=== PATIENT | male | born 1985 | race Caucasian/White ===

== ENCOUNTER 2024-02-09 23:20 | Emergency (ER) | payer BC, SELFPAY ==
[2024-02-09 23:20] VITALS: BMI 25.1
[2024-02-09 23:30] VITALS: BP 133/84
[2024-02-10 00:25] VITALS: BP 122/91
[2024-02-10 00:41] LABS: % Basophils 0.9 % (0-2); % Immature Granulocytes 0.9 % (0-0.5); % Lymphocytes 38.9 % (20.5-51.1); % Monocytes 12.1 % (1.7-9.3); % Neutrophils 45.2 % (42.2-75.2); Absolute Basophils 0.1 10^3/uL (0-0.2); Absolute Eosinophils 0.1 10^3/uL (0-0.7); Absolute Immature Granulocytes 0.1 10^3/uL (0-0.05); Absolute Lymphocytes 2.2 10^3/uL (1.2-3.4); Absolute Monocytes 0.7 10^3/uL (0.1-0.6); Absolute Neutrophils 2.5 10^3/uL (1.4-6.5); Hematocrit 39.9 % (39.0-52.0); Hemoglobin 14.3 g/dL (13.0-18.0); Mean Corp Hgb Conc. 35.8 g/dL (33.0-37.0); Mean Corpuscular Hgb 29.9 pg (27.0-31.0); Mean Corpuscular Volume 83.5 fL (80.0-94.0); Mean Platelet Volume 10.4 fL (7.4-10.4); Nucleated Red Blood Cells % 0 % (-); Platelet Count 215 10^3/uL (130-400); Red Blood Cell Count 4.78 10^6/uL (4.70-6.10); Red Cell Dist. Width 11.9 % (11.5-14.5); White Blood Cell Count 5.5 10^3/uL (4.8-10.8)
--- NOTE | 2024-02-10 00:58 | ED.GENMED ---
History of Present Illness
General
Chief Complaint: Chest Pain
Source: patient
Exam Limitations: none
Time Seen by Provider: 02/10/24 00:29
History of Present Illness
History of Present Illness:
38-year-old male complaining of chest pain. Started late this morning. Peak late in the afternoon. Nonexertional. States it is worse with cough and deep breathing. Has had right jaw pain for days that has been continuous and worse with opening
his jaw all noted with clicking. No shortness of breath no diaphoresis no shearing upper back.
Past History
Past History
ED Past Medical History: Other (TMJ)
ED Past Surgical History: Appendectomy
Review of Systems
Review of Systems
All Other Systems: Not applicable
Constitutional: Denies fever
Respiratory: Reports no symptoms
ABD/GI: Reports no symptoms
Phy Exam
Physical Exam
Physical Exam:
GENERAL: Alert and oriented in no apparent distress
EYE: Orbits normal.
NECK: Supple
CARDIAC: Regular rate and rhythm without any obvious murmurs.
LUNGS: Clear breath sounds,normal
ABDOMEN: Soft, without focal tenderness or distention
NEUROLOGICAL: Alert and oriented , grossly non-focal
SKIN: Warm and dry, no rash or lesion, no discoloration, skin intact.
MUSCULOSKELETAL: No edema,no deformity.Good color
PSYCH: Normal and appropriate interaction.
Scores
Heart Score for Chest Pain Patients
STEMI patient?: No
History: Slightly or Non-Suspicious
ECG: Normal
Age: </= 45 years
Risk Factors: No Risk Factors
Troponin: </= Normal Limit
Heart Score for Chest Pain Patients: 0
Heart Score Risk: 2.5% MACE over next 6 weeks
Course
Orders/Labs/Results
Orders:
Orders
02/09/24 23:20
Electrocardiogram (*1) Urgent
Reason for Study: Chest Pain
EKG- Treatment ONCE
02/09/24 23:35
Cardiac Monitoring- Treatment ONCE
IV Insert/Care/Rem.- Treatment PRN
Complete Blood Count/With Diff Urgent
Comprehensive Metabolic Panel Urgent
NT-proBNP Urgent
Troponin I Urgent
O2 Therapy [RESP] Urgent
Titrate/Wean O2 to maintain O2 sat greater than (%): 93
Special Instructions: TO MAINTAIN CONTINUOUS O2 SATS >/= 93%
Pulse Ox/cont/shift [RESP] Urgent
Quantity: 1
Special Instructions: continuous pulse ox
02/10/24 00:10
CR Chest - 2 Views Urgent
Reason For Exam: respiratory distress
02/10/24 01:09
D-Dimer Urgent
Abnormal Lab Results
02/10/24 02/10/24
00:29 00:30
Abs Immat Gran (auto) 0.1 H 10^3/uL
(0-0.05)
Absolute Monos (auto) 0.7 H 10^3/uL
(0.1-0.6)
Immature Gran % 0.9 H %
(0-0.5)
Monocytes % 12.1 H %
(1.7-9.3)
Carbon Dioxide 20 L mmol/L
(22-30)
02/10/24 00:30
02/10/24 00:29
Vital Signs
Initial and Last Documented VS:
Initial Vital Signs
Temp Pulse Resp BP Pulse Ox
98.1 F 55 20 133/84 97
02/09/24 23:30 02/09/24 23:30 02/09/24 23:30 02/09/24 23:30 02/09/24 23:30
Last Documented Vital Signs
Temp Pulse Resp BP Pulse Ox
98.1 F 52 16 109/64 99
02/09/24 23:30 02/10/24 01:30 02/10/24 01:30 02/10/24 01:28 02/10/24 01:30
MDM/Problems Addressed
Differential Diagnosis Includes:
Patient describing 2 major symptoms. #1 right jaw pain that has been continuous for days worse with clicking or opening his jaw. Nonexertional. Today's chest pain started late in the morning and has been continuous and also not exertional is
atypical for cardiac. Describes it is worse with coughing or taking a deep breath. He has no cardiac risk factors. He has no leg swelling. No risk factors for PE or DVT. Clinically stable and nontoxic. Workup in progress.
*Pulse Oximetry
Patient hypoxic: no
*EKG
Interpreted by ED Provider?: Yes
Interpretation: abnormal
Comparison EKG: no comparison EKG present
Heart Rate: 53
Rate: bradycardiac
Rhythm: sinus
Bailey: normal axis
Interval: normal interval
QRS Pattern: normal QRS
Ischemia: no ischemia
*Critical Care Note
Total Time (30-74mins, 75-104mins- exclusive of procedures): Not Applicable
Update Note
Update Note:
Patient with no cardiac risk factors. Continuous jaw symptoms for days. Continuous chest pain since late morning. Discussed repeat troponin and EKG which given his symptom timeline is unnecessary. No cardiac risk factors. Atypical chest pain..
Has a minimal elevation in his immature neutrophils although nothing clinically or by history to support a significant infectious process. Discharged to follow-up
ED Attending Note
-
Portions of this chart may have been created with voice recognition software.� Occasional wrong word or��sound alike� substitutions may have occurred due to the inherent limitations of voice recognition software.
Discharge Plan
Departure
Patient Disposition: Home (Routine Discharge)
Date of Disposition: 02/10/24
Time of Disposition: 01:53
Patient with high blood pressure during this ER visit?: No
Discharge Problem:
Anterior chest pain
Instructions: Chest Pain, Adult ED
Referrals:
PRIVATE,PHYSICIAN [Family Provider] - Follow up in 2-3 days
Activity Restrictions/Additional Instructions:
Follow-up closely with your primary physician
Return with increased pain shortness of breath fever increasing jaw pain or any other concerning symptoms
Interventions
Interventions:
*Risk Screen - Suicide Last Done: 02/09/24 23:21
*General Assessment Last Done: 02/09/24 23:30
*Neglect/Abuse Screening Last Done: 02/09/24 23:30
ED- Fall Risk Assessment Last Done: 02/09/24 23:30
*ED COVID-19 Vaccine History Last Done: 02/09/24 23:30
ED- Cardiac Assessment Last Done: 02/10/24 00:35
Discharge Date and Time
Print Language: MALIAN
[2024-02-10 01:06] LABS: ALT (SGPT) 42 U/L (0-50); AST (SGOT) 39 U/L (17-59); Albumin 4.7 g/dl (3.5-5.0); Alkaline Phosphatase 50 U/L (38-126); Blood Urea Nitrogen 17 mg/dl (9-20); Calcium 9.8 mg/dl (8.4-10.2); Carbon Dioxide 20 mmol/L (22-30); Chloride 105 mmol/L (98-107); Estimated Creatinine Clearance > 125 ml/min; Glucose 96 mg/dl (70-99); Potassium 4.4 mmol/L (3.5-5.1); Sodium 142 mmol/L (135-145); Total Bilirubin 0.6 mg/dl (0.2-1.3); Total Protein 7.2 g/dl (6.3-8.2); eGFR > 60.00
[2024-02-10 01:06] LABS: NT-proBNP < 20.0 pg/ml; Troponin I < 0.012 ng/ml
[2024-02-10 01:28] VITALS: BP 109/64
[2024-02-10 01:29] LABS: D-Dimer < 0.27 ug/mlFEU (0.00-0.50)
[2024-02-10 02:00] VITALS: BP 117/72
== END 2024-02-10 02:11 | disposition home or self-care (01) ==
LOC: EMR 23:20
PROVIDERS: Student in an Organized Health Care Education/Training Program; EMERGENCY PHYSICIAN Emergency Medicine
DX: R07.89 Other chest pain (principal); Z90.49 Acquired absence of other specified parts of digestive tract; M26.609 Unspecified temporomandibular joint disorder, unspecified side
CPT/HCPCS: 99283; 71046; 80053; 83880; 84484; 85025; 85379; 93005